=== PATIENT | male | born 1955 | race Two or more races ===

== ENCOUNTER → 2016-05-29 | Day surgery (SDC) | payer BC ==
[~2016-05-29] VITALS: Ht 190.5 cm; Wt 117.9 kg
[2016-05-29] VITALS (10 sets, daily range): BP systolic 104–136; BP diastolic 76–87
[~2016-05-29] MED LIST: DiphenhydrAMINE 50mg/ml Inj IVP PRN; FLUTICASONE PRO16 G1 NASAL; LR 1000ml 1,000 ML IVLG SCH; LR 1000ml ONE; Labetalol 5mg/ml 20ml vial IV PRN; Lidocaine 1% MPF 10mg/ml 5ml ONE; NASONEX17 GM NASAL; Propofol 10mg/ml 20ml IV ONE
--- NOTE | 2016-05-29 07:37 | Anethesia Preoperative Eval ---
Anesthesia Pre-op PMH/ROS General Date of Evaluation: May 29, 2016 Anesthesiologist: Manuel ASA Score: ASA 2 Mallampati Score Class I : Soft palate, uvula, fauces, pillars visible Class II: Soft palate, uvula, fauces visible Class III: Soft palate, base of uvula visible Class IV: Only hard plate visible Mallampati Classification: Class III Surgeon: Ivis Diagnosis: Screening Surgical Procedure: EGD and colonoscopy Anesthesia History: none Family History: no anesthesia problems Allergies: Coded Allergies: No Known Allergies (Unverified , 05/29/16) Medications: see eMAR Past Medical History Cardiovascular: Reports: HTN, Denies: CAD, PR, arrhythmia, other, valve dz Pulmonary: Reports: asthma, Denies: COPD, OMAR, other Gastrointestinal/Genitourinary: Reports: GERD, Denies: CRI, ESRD, other Neurologic/Psychiatric: Denies: CVA, TIA, dementia, depression/anxiety, other Endocrine: Denies: DM, hypothyroidism, other, steroids HEENT: Denies: [place] (L), [place] (R), cataract (L), cataract (R), glaucoma, other Hematology/Immune: Denies: DVT, anemia, bleeding disorder, other Musculoskeletal/Integumentary: Reports: OA, Denies: DDD, DJD, RA, edema, other Other: obesity - morbid PSxH Narrative: T&A Anesthesia Pre-op Phys. Exam Physician Exam see chart Constitutional: NAD Cardiovascular: RRR Respiratory: CTA Airway Exam Mallampati Score: Class III MO: limited ROM: limited Anesthesia Pre-op A/P Labs see chart Studies Pre-op Studies: EKG - sr Risk Assessment & Plan Assessment: ASA II Plan: MAC Status Change Before Surgery: No Pre-Antibiotics Drug: N/A REED CAIN M.D. May 29, 2016 07:37
--- NOTE | 2016-05-29 07:54 | Immediate Post-Op Evaluation ---
Immediate Post-Op Evalulation Immediate Post-Op Evalulation Procedure: EGD and colonoscopy Date of Evaluation: May 29, 2016 Time of Evaluation: 09:38 IV Fluids: 600 Blood Products: 0 Estimated Blood Loss: 0 Urinary Output: 0 Blood Pressure Systolic: 104 Blood Pressure Diastolic: 70 Pulse Rate: 72 Respiratory Rate: 16 O2 Sat by Pulse Oximetry: 100 Temperature (Fahrenheit): 97.5 Pain Score (1-10): 0 Nausea: No Vomiting: No Complications 0 Patient Status: awake, reacts, patent, none Hydration Status: adequate Drug: N/A REED CAIN M.D. May 29, 2016 07:54
--- NOTE | 2016-05-29 07:54 | 48 Hour Post Anesthesia Eval ---
Post Anesthesia Evaluation Procedure: EGD and colonoscopy Date of Evaluation: May 29, 2016 Blood Pressure Systolic: 118 0: 76 Pulse Rate: 74 Respiratory Rate: 17 O2 Sat by Pulse Oximetry: 98 Airway: patent Nausea: No Vomiting: No Pain Intensity: 0 Hydration Status: adequate Cardiopulmonary Status: at baseline Mental Status/LOC: patient returned to baseline Post-Anesthesia Complications: 0 Follow-up care needed: ready to discharge REED CAIN M.D. May 29, 2016 07:54
--- NOTE | 2016-05-29 08:57 | Pre-Procedure Note/Attestation ---
Pre-Procedure Note/Attestation Complete Prior to Procedure Planned Procedure: not applicable Procedure Narrative: egd/colonoscopy Indications for Procedure Pre-Operative Diagnosis: screening colon, GERD Attestation I attest that I discussed the nature of the procedure; its benefits; risks and complications; and alternatives (and the risks and benefits of such alternatives ), prior to the procedure, with the patient (or the patient's legal enrollment representative). I attest that, if there was a reasonable possibility of needing a blood transfusion, the patient (or the patient's legal enrollment representative) was given the [facility] standardized written summary, pursuant to the Chintan Jessi Blood Safety Act ([place] Health and Safety Code # 1645, as amended). I attest that I re-evaluated the patient just prior to the surgery and that there has been no change in the patient's H&P, except as documented below: ZULMA CHRISTY May 29, 2016 08:57
--- NOTE | 2016-05-29 08:58 | Short Stay Surgery H&P ---
History of Present Illness History of Present Illness Chief Complaint screening colon, GERD HPI Baltazar Echeverria is a 60 year old male who was admitted on for Gerd,Colon Screening Patient History Allergies: Coded Allergies: No Known Allergies (Unverified , 05/29/16) PAST MEDICAL HISTORY: (1) Asthma Past Surgeries: Social History: Medication History Scheduled Fluticasone Propionate* (Fluticasone Propionate*), 1 SPRAY NASAL DAILY, ( Reported) Mometasone Furoate (Nasonex), 2 SPRAYS NASAL DAILY, (Reported) Review of Systems Cardiovascular: Reports: no symptoms Respiratory: Reports: no symptoms Skeletal: Reports: no symptoms Gastrointestinal: Reports: no symptoms Genitourinary: Reports: no symptoms Neurologic: Reports: no symptoms Endocrine: Reports: no symptoms Hematologic: Reports: no symptoms Physical Exam Vital Signs Last Vital Signs Date Time Temp Pulse Resp B/P Pulse Ox O2 Delivery O2 Flow Rate FiO2 05/29/16 07:41 97.8 73 20 136/80 96 Room Air Skin: normal HENT: normal Heart: normal Lungs: normal Abdomen: normal Extremities: normal Plan Plan of Care egd/colon Final Diagnosis: Attestation Are the patient's medical conditions optimized for surgery? Attestation Response: yes ZULMA CHRISTY May 29, 2016 08:58
--- NOTE | 2016-05-29 09:38 | Endoscopy Procedure Note ---
Endoscopy Procedure Note Indication for Procedure: gerd, screening colon Procedures Performed: EGD, colonoscopy Operative Findings/Diagnosis: gastritis, TI ulcer Specimen: yes Pt Tolerated Procedure Well: Yes Estimated Blood Loss: none Anesthesiologist: felicia Anesthesia: MAC Implant(s) used?: No 50 yrs or older w/o bx or poly: Yes 10yrs. F/U not recommended: Yes If not recommended, why?: Above average risk 10 yrs. F/U needed: Yes 18 years or older w/prev. colo: No ZULMA CHRISTY May 29, 2016 09:38
--- NOTE | 2016-05-29 09:58 | Cardiology Report ---
APPROVED REPORT EKG Measurement Heart [id number] Normal sinus rhythm Normal ECG
--- NOTE | 2016-05-29 21:08 | Procedure Note ---
DATE OF PROCEDURE: 05/29/2016 SURGEON: Scotty Langston M.D. PROCEDURE: Upper endoscopy with biopsy and colonoscopy. ANESTHESIA: Dr. Nicolas. INSTRUMENT: Olympus adult flexible colonoscope. INDICATION: Screening colonoscopy evaluation also history of chronic acid reflux disease. REASON FOR PROCEDURE: The procedure, risks, benefits, and possible consequences, including hemorrhage, aspiration, perforation and infection, and alternative treatments, were explained to the patient/legal guardian by Dr. Scotty Langston and the patient/legal guardian understood and accepted these risks. DESCRIPTION OF PROCEDURE: After informed consent was obtained and the patient was adequately sedated, Olympus upper endoscope was advanced from mouth into the second portion of duodenum. Mild retroflexion was performed into the stomach. The patient had a distal esophageal ring. No obvious evidence of large hiatal hernia. In the stomach, there were multiple polyps in the body of the stomach most probably fundic gland polyps. At the antrum, there was shallow ulceration in the pre-pyloric region in the antrum of about 9 o'clock position, which was biopsied. The patient also had some mucosal changes suspicious for GAVE, which were also biopsied. Then, random biopsy from the body and antrum was obtained to rule out H. pylori infection. There was also some evidence of minimum duodenitis. At this time, the upper endoscope was retrieved and the patient was turned over for colonoscopy. First, a rectal exam was performed, which was normal. Then, the scope was advanced from the cecum and subsequently to the terminal ileum. Quality of prep was very good. The patient had a 1 single ulceration related to the large size in the terminal ileum, which was biopsied. The rest of the colonoscopic examination was grossly within normal limits. There was no obvious polyp in the colon. No diverticulosis. No mass was seen. Retroflexion of rectum showed evidence of few small nonbleeding internal hemorrhoids. SUMMARY OF FINDINGS: 1. Distal esophageal ring. 2. Multiple gastric polyps, most probably fundic gland polyps. 3. One shallow gastric ulcer. 4. 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 5. Duodenitis. 6. Terminal ileum ulceration. 7. Small internal hemorrhoids. RECOMMENDATIONS: 1. Follow biopsy results and treat accordingly. 2. If the patient is on NSAID, we will recommend the patient to stop NSAIDs given this ulcer in the stomach and also in the terminal ileum. The patient at this time, will need a PPI daily for this shallow gastric ulceration. Scotty Langston M.D. DR: Araceli JOB#: [id number] CC:
== END | disposition home or self-care (01) ==
LOC: GAS 07:04
DX: Z12.11 Encounter for screening for malignant neoplasm of colon (principal); K63.3 Ulcer of intestine; K64.8 Other hemorrhoids; K21.9 Gastro-esophageal reflux disease without esophagitis; K22.2 Esophageal obstruction; K31.7 Polyp of stomach and duodenum; K25.9 Gastric ulcer, unspecified as acute or chronic, without hemorrhage or perforation; K29.80 Duodenitis without bleeding; J45.909 Unspecified asthma, uncomplicated; I10 Essential (primary) hypertension; M19.90 Unspecified osteoarthritis, unspecified site; E66.01 Morbid (severe) obesity due to excess calories
CPT/HCPCS: 43239; 45378; 93005; J2704; J7120; 94003; 94150